=== PATIENT | female | born 1995 | race Native Hawaiian/Other Pacific Islander ===

== ENCOUNTER 2017-11-01 08:44 | Emergency (ER) | payer OTHER ==
[2017-11-01 08:53] VITALS: BP 121/67
[2017-11-01] MEDS ORDERED: DEXAMETHASONE 10 MG/ML VIAL PO STA (08:58)
--- NOTE | 2017-11-01 09:01 | ED Physician Documentation ---
PD HPI URI - Stated complaint Stated Complaint: FEVER - Chief complaint Chief Complaint: Heent - History obtained from History obtained from: Patient - History of Present Illness Timing - onset: How many weeks ago (2) Timing duration: Weeks (2) Timing details: Gradual onset, Still present, Waxing and waning Associated symptoms: Fever, Nasal congestion, Rhinorrhea, Dry cough, Other ( dizziness and joint aches) Improves by: Medication Similar symptoms before: Diagnosis (URI) Recently seen: Clinic - Additional information Additional information: 21-year-old female is been sick with a cough and congestion for about 2 weeks now she did going to an urgent care and was placed on some Sudafed and ibuprofen which helped for a while. Patient is having worsening of her symptoms she is now developed some dizziness associated with movement. She also has some aches and pains in her joints. Review of Systems Constitutional: reports: Fever Eyes: denies: Decreased vision Ears: denies: Ear pain Nose: reports: Rhinorrhea / runny nose, Congestion Throat: denies: Sore throat Cardiac: denies: Chest pain / pressure, Palpitations Respiratory: reports: Cough. denies: Dyspnea GI: denies: Abdominal Pain, Nausea, Vomiting : denies: Dysuria, Frequency Skin: denies: Rash Musculoskeletal: reports: Joint pain. denies: Neck pain, Back pain Neurologic: reports: Other (dizziness). denies: Generalized weakness, Focal weakness, Numbness PD PAST MEDICAL HISTORY - Present Medications Home Medications: Ambulatory Orders Medication Instructions Recorded Confirmed Azithromycin [Zithromax] 250 mg PO DAILY #6 tablet 11/01/17 - Allergies Allergies/Adverse Reactions: Allergies Allergy/AdvReac Type Severity Reaction Status Date / Time cephalexin [From Keflex] AdvReac Rash Verified 11/01/17 08:53 PD ED PE NORMAL - Vitals Vital signs reviewed: Yes (normal ) - General General: Alert and oriented X 3, No acute distress, Well developed/nourished - HEENT HEENT: Atraumatic, PERRL, EOMI, Pharynx benign, Other (There is mild inflamation and retraction of the left TM the right is clear the teeth are carious ) - Cardiac Cardiac: RRR, No murmur - Respiratory Respiratory: No respiratory distress, Clear bilaterally - Abdomen Abdomen: Soft, Non tender - Back Back: No CVA TTP, No spinal TTP - Derm Derm: Normal color, Warm and dry, No rash - Extremities Extremities: No deformity, No edema - Neuro Neuro: No motor deficit, No sensory deficit Eye Opening: Spontaneous Motor: Obeys Commands Verbal: Oriented GCS Score: 15 - Psych Psych: Normal mood, Normal affect Results - Vitals Vitals: Vital Signs - 24 hr 11/01/17 08:48 Temperature 36.4 C L Heart Rate 80 Respiratory 14 Rate Blood Pressure 121/67 O2 Saturation 97 Oxygen O2 Source Room air PD MEDICAL DECISION MAKING - ED course Complexity details: considered differential, d/w patient ED course: 21-year-old female with a two-week history of cough has persisted since of symptoms and today on examination has some mild erythema and retraction of the left TM. She is diagnosed with left otitis media and she is given a dose of dexamethasone orally we will place her on some azithromycin. Departure - Departure Disposition: 01 Home, Self Care Clinical Impression: Otitis media Qualifiers: Otitis media type: suppurative Chronicity: acute Laterality: left Recurrence: not specified as recurrent Spontaneous tympanic membrane rupture: without spontaneous rupture Qualified Code(s): H66.002 - Acute suppurative otitis media without spontaneous rupture of ear drum, left ear Instructions: ED Otitis Media Acute Adult Follow-Up: [facility] [Provider Group] Prescriptions: Azithromycin [Zithromax] 250 mg PO DAILY #6 tablet
[2017-11-01] MEDS ORDERED: CHERRY SYRUP 10 ML UDC PO ONE (09:18)
== END 2017-11-01 09:13 | disposition home or self-care (01) ==
LOC: ED 08:44
DX: H66.002 Acute suppurative otitis media without spontaneous rupture of ear drum, left ear (principal)
CPT/HCPCS: 99283; A9270

== ENCOUNTER 2021-03-02 18:15 | Emergency (ER) | payer MEDICAID, OTHER ==
[2021-03-02] MEDS ORDERED: valACYclovir 500 MG TABLET PO STA (20:31)
--- NOTE | 2021-03-02 20:47 | ED Physician Documentation ---
History of Present Illness - Stated complaint Stated Complaint: HEADACHE/LT SIDE PX - Chief complaint Chief Complaint: Neuro - History obtained from History obtained from: Patient - Additonal information Additional information: 25-year-old woman presents with headache and left ear pain since yesterday morning vesicular rash to left face that she noted around 1pm. pain is intermittent, sharp, located around the temporal bone where the rash is, shooting to the ear, without exacerbating or relieving factors. no vision changes but she is having increased tear formation. Of note, patient is 23 weeks gestational age of and sees Dr. Quiroz in [place] for her care. Review of Systems Ten Systems: 10 systems reviewed and negative Constitutional: denies: Fever, Chills Eyes: denies: Loss of vision, Photophobia Ears: reports: Ear pain Skin: reports: Rash PD PAST MEDICAL HISTORY - Past Medical History Cardiovascular: None Respiratory: None Neuro: None Endocrine/Autoimmune: None GI: None PIER MASTER: None : None HEENT: None Psych: None Musculoskeletal: None Derm: None - Past Surgical History Past Surgical History: No - Present Medications Home Medications: Ambulatory Orders Medication Instructions Recorded Confirmed Azithromycin [Zithromax] 250 mg PO DAILY #6 tablet 11/01/17 Valacyclovir HCl [Valtrex] 1,000 mg PO TID 7 Days #21 tablet 03/02/21 prednisoLONE 1% OPHTH DROPS [Pred 1 drops LEFTEYE BID #5 ml 03/02/21 Forte 1% Ophth Drops] - Allergies Allergies/Adverse Reactions: Allergies Allergy/AdvReac Type Severity Reaction Status Date / Time cephalexin [From Keflex] AdvReac Rash Verified 03/02/21 18:31 - Social History Does the pt smoke?: No Smoking Status: Never smoker Does the pt drink ETOH?: Yes Does the pt have substance abuse?: No - Immunizations Immunizations are current?: Yes - POLST Patient has POLST: No PD ED PE NORMAL - Vitals Vital signs reviewed: Yes - General General: Alert and oriented X 3, No acute distress, Well developed/nourished - HEENT HEENT: Atraumatic, PERRL, EOMI, Ears normal, Other (TMs and ext aud canal clear. fluorescein testing of L eye benign) - Neck Neck: Supple, no meningeal sign - Cardiac Cardiac: RRR - Respiratory Respiratory: No respiratory distress, Clear bilaterally - Abdomen Abdomen: Non tender, Non distended - Derm Derm: Other (small subtle vesicular rash just lateral to left brow line. ) - Extremities Extremities: No deformity - Neuro Neuro: Alert and oriented X 3, No motor deficit, No sensory deficit Results - Vitals Vitals: Vital Signs - 24 hr 03/02/21 03/02/21 03/02/21 18:26 19:38 22:26 Temperature 36.6 C Heart Rate 95 62 Respiratory 16 16 Rate Blood Pressure 147/115 H 128/81 H 136/85 H O2 Saturation 98 99 03/02/21 23:00 Temperature 36.6 C Heart Rate 62 Respiratory 16 Rate Blood Pressure 136/85 H O2 Saturation 99 Oxygen O2 Source Room air - Labs Labs: Laboratory Tests 03/02/21 20:50 Urine Color YELLOW Urine Clarity HAZY Urine pH 6.5 Ur Specific [place] 1.020 Urine Protein NEGATIVE Urine Glucose (UA) NEGATIVE Urine Ketones NEGATIVE Urine Occult Blood SMALL H Urine Nitrite NEGATIVE Urine Bilirubin NEGATIVE Urine Urobilinogen 0.2 (NORMAL) Ur Leukocyte Esterase NEGATIVE Urine RBC 0-5 Urine WBC 4-5 Ur Squamous Epith Cells FEW Squamous Urine Crystals 3-5 Calcium Oxalate Urine Bacteria Many H Urine Culture Comments NOT INDICATED Procedures - General procedure General procedure: Bedside [id number] ultrasound with positive movements and heart rate of 162. PD MEDICAL DECISION MAKING - ED course ED course: d/w Dr. Alston, regulation supervisor for patient's faculty instructor (family doctor) Dr. Quiroz in [place]. We discussed elevated BP 147/115 that was not elevated on repeat. low suspicion for preeclampsia given she is early on in . will eval urine for protein and if normal can f/u outpatient. In regards to vesicular eruption, recommend valtrex [id number] 7 days and pain control with tylenol/benadryl. d/w Dr. Padron, ophthalmology at [facility] in regards to patient vesicular eruption with L eye tearing and pain, but without evidence of herpetic lesions on fluorescein exam. He recommends outpatient ophtho f/u in 1 week. strict return precautions given to patient. Departure - Departure Disposition: 01 Home, Self Care Clinical Impression: Herpes zoster Condition: Good Instructions: ED Shingles Follow-Up: ANDREY QUIROZ [Primary Care Provider] - Prescriptions: prednisoLONE 1% OPHTH DROPS [Pred Forte 1% Ophth Drops] 1 drops LEFTEYE BID #5 ml Valacyclovir HCl [Valtrex] 1,000 mg PO TID 7 Days #21 tablet Comments: You were seen in the emergency department for shingles infection of the face. This is highly contagious so please take your medicine as prescribed, wash your hands frequently and avoid touching your face. We checked for infection of the eye and there is nothing on the eye as of right now but you should take the eye drops as a precaution. If you develop vision changes then go to an emergency department immediately. Please follow up with your doctor in [place] this week. Please follow-up with [facility] ophthalmology in 1 week at [id number] [phone]. Forms: Activity restrictions Discharge Date/Time: 03/02/21 23:00
[2021-03-02 21:02] LABS: BILIRUBIN,URINE NEGATIVE (NEGATIVE); GLUCOSE, URINE (UA) NEGATIVE (NEGATIVE); KETONES,URINE (UA) NEGATIVE (NEGATIVE); LEUKOCYTE ESTERASE, URINE NEGATIVE (NEGATIVE); NITRITE,URINE NEGATIVE (NEGATIVE); OCCULT BLOOD,URINE SMALL (NEGATIVE); PH,URINE 6.5 PH (5.0-7.5); PROTEIN,URINE NEGATIVE (NEGATIVE); UROBILINOGEN,URINE 0.2 (NORMAL) E.U./dL (NORMAL)
[2021-03-02 21:09] LABS: CLARITY,URINE HAZY (CLEAR)
[2021-03-02 21:16] LABS: BACTERIA,URINE Many /HPF (None Seen); CRYSTALS,URINE 3-5 Calcium Oxalate /LPF; RBC,URINE 0-5 /HPF (0-5); SQUAMOUS EPITHELIAL CELL,UR FEW Squamous (<= Few)
[2021-03-02 22:26] VITALS: BP 136/85
== END 2021-03-02 23:00 | disposition home or self-care (01) ==
LOC: ED 18:15
DX: O98.512 Other viral diseases complicating pregnancy, second trimester (principal); B02.9 Zoster without complications; O99.891 Other specified diseases and conditions complicating pregnancy; R03.0 Elevated blood-pressure reading, without diagnosis of hypertension; Z3A.23 23 weeks gestation of pregnancy
CPT/HCPCS: 81001; 99283; 99284; A9270; 87086